=== PATIENT | male | born 1995 | race African-American/Black ===

== ENCOUNTER 2022-08-22 15:22 | Emergency (ER) | payer OTHER ==
[~2022-08-22] VITALS: Ht 185.4 cm; Wt 113.6 kg
[2022-08-22 15:26] VITALS: TEMP 97.9
[2022-08-22 22:59] VITALS: BP 127/83; PULSE 60
== END 2022-08-22 22:59 | disposition home or self-care (01) ==
LOC: COL.ER 15:22
DX: S03.03XA Dislocation of jaw, bilateral, initial encounter (principal); Z87.39 Personal history of other diseases of the musculoskeletal system and connective tissue; X58.XXXA Exposure to other specified factors, initial encounter
CPT/HCPCS: J2250; J2270; J2405; J2704